=== PATIENT | female | born 1970 | race Hispanic/Latino ===

== ENCOUNTER 2020-11-24 19:17 | Emergency (ER) | payer OTHER ==
[~2020-11-24] VITALS: Ht 154.9 cm; Wt 63.5 kg
[2020-11-24 20:24] LABS: APPEARANCE,URINE Clear (CLEAR); BILIRUBIN,URINE Negative (NEGATIVE); COLOR,URINE Yellow (YELLOW); GLUCOSE, URINE (UA) Negative (NEGATIVE); KETONES,URINE Negative (NEGATIVE); LEUKOCYTE ESTERASE ,URINE Negative (NEGATIVE); NITRATE,URINE Negative (NEGATIVE); OCCULT BLOOD,URINE Moderate (NEGATIVE); PH,URINE 6.5 (5.0-8.0); PROTEIN,URINE Negative (NEGATIVE); UROBILINOGEN,URINE 0.2 mg/dL (0.2-1.0)
[2020-11-24] MEDS ORDERED: KETOROLAC 30MG VIAL (30MG/ML) IM ONE (20:30)
[2020-11-24] MEDS ORDERED: ONDANSETRON ODT 4MG TAB SL ONE (20:30)
[2020-11-24 20:34] LABS: BACTERIA,URINE Rare /HPF (None Seen); MUCUS,URINE Rare LPF (None Seen); WBC,URINE 0-1 /HPF (0-1)
[2020-11-24 20:35] LABS: SQUAMOUS EPITHELIAL CELL,UR Rare /HPF (0-2)
[2020-11-24] MEDS ORDERED: IBUP-2070 PO (21:10)
[2020-11-24 21:36] VITALS: BP 129/76
== END 2020-11-24 21:40 | disposition home or self-care (01) ==
LOC: EDH 19:17
DX: N20.0 Calculus of kidney (principal); I10 Essential (primary) hypertension; K21.9 Gastro-esophageal reflux disease without esophagitis; F41.9 Anxiety disorder, unspecified; Z79.1 Long term (current) use of non-steroidal anti-inflammatories (NSAID); Z79.899 Other long term (current) drug therapy; Z87.442 Personal history of urinary calculi; Z98.51 Tubal ligation status
CPT/HCPCS: 74176; 81001; 96372; 99284; J1885